=== PATIENT | female | born 1955 | race Caucasian/White ===

== ENCOUNTER → 2018-10-31 | Day surgery (SDC) | payer MEDICARE, OTHER ==
[2018-10-29 15:31] LABS: BASOPHILS # (AUTO) 0.1 (0.0-0.1); BASOPHILS % 0.7 % (0.0-1.0); EOSINOPHILS # (AUTO) 0.1 (0.0-0.4); EOSINOPHILS % 1.3 % (0.0-6.0); HEMATOCRIT 45.3 % (34.2-44.1); HEMOGLOBIN 15.8 g/dL (12.0-16.0); LYMPHOCYTES # (AUTO) 2.8 (1.0-3.2); LYMPHOCYTES % 32.7 % (18.0-39.1); MEAN CORPUSCULAR HEMOGLOBIN 34.3 pg (28-32); MEAN CORPUSCULAR HGB CONC 34.9 g/dL (31-35); MEAN CORPUSCULAR VOLUME 98.3 fL (81-99); MONOCYTES # (AUTO) 0.7 (0.2-0.8); MONOCYTES % 7.5 % (4.4-11.3); NEUTROPHILS % 57.6 % (38.7-80.0); PLATELET COUNT 192 x10e3/uL (140-360); RED BLOOD COUNT 4.61 x10e6/uL (3.6-5.1); RED CELL DISTRIBUTION WIDTH 14.5 % (11.7-14.4)
[2018-10-29 15:53] LABS: ALANINE AMINOTRANSFERASE 16 IU/L (0-55); ALBUMIN 3.8 g/dL (3.5-5.0); ALBUMIN/GLOBULIN RATIO 0.9 (0.8-2.0); ALKALINE PHOSPHATASE 59 IU/L (40-150); ANION GAP 16.4 mmol/L (8-16); BLOOD UREA NITROGEN 13 mg/dL (7-26); BUN/CREATININE RATIO 19 (6-25); CALCIUM 9.6 mg/dL (8.4-10.2); CARBON DIOXIDE 20 mmol/L (22-29); CHLORIDE 100 mmol/L (98-107); CREATININE, SERUM 0.69 mg/dL (0.57-1.11); EST GLOMERULAR FILTRATION RATE > 60 ML/MIN (60-); GLUCOSE 81 mg/dL (74-118); POTASSIUM 3.4 mmol/L (3.5-5.1); SODIUM 133 mmol/L (136-145)
[~2018-10-31] VITALS: Ht 157.5 cm; Wt 59.0 kg
[~2018-10-31] MED LIST: AMLODIPINE BESY10 MG PO; ASPIRIN 325 MG TAB ONE; BIVALRIUDIN 250 MG/VIAL VIAL IV ONE; DIPHENHYDRAMINE HCL INJ 50 MG/ML VIAL ONE; FENTANYL CITRATE/PF 100MCG/2 ML INJ ONE; HEPARIN SOD (PORCINE) 1000 UNIT/ML 30ML ONE; HEPARIN SOD/SOD CHLORIDE 2,000 ML ONE; HYDROCHLOROTHIA25 MG; HYDROCHLOROTHIA25 MG PO; IBUPROFEN400 MG PO; IOPAMIDOL 300MG/ML 100 ML INFUS..BTL IV ONE; LIDOCAINE HCL 2% LOCAL 20 ML VIAL ONE; LISINOPRIL10 MG PO; METOPROLOL TART50 MG PO; MIDAZOLAM HCL 2 MG/2 ML VIAL ONE; NORCO 10-325 T1 EACH PO; PRASUGREL 10 MG TAB ONE; SODIUM CHLORIDE 0.9% 1000ML 1,000 ML ONE; SODIUM CHLORIDE 0.9% 50ML 0 ML ONE; SOMA350 MG PO; VERAPAMIL HCL 2.5 MG/ML 2 ML VIAL ONE
[2018-10-31 13:48] VITALS: BP 118/78
[2018-10-31 16:22] VITALS: BP 176/71
--- NOTE | 2018-10-31 16:22 | NUR ---
4388 Bedside report received from Jt OCHOA. Alert oriented and inappropriate and agitative periodically, PERRLA, respirations even and unlabored to room air. Pulses x2 upper extremity. Pedal pulses PT/DP palpable . Cap fill brisk < 3 sec. Skin warm and dry integrity appears D/I. IV 20g to left hand,Infusing at 100cchr, presents healthy w/o s/s of infiltration or complaint. Abdomen soft and supple. pt offered toileting, denies need to urinate or defecate. No personal affects with patient. no Family. Pt and family verbalizes agitation of having to stay flat and down till 6pm. Pt voices no release of information and ride Gonzalo Hardwick will pickup with no information release. Reached out per phone call to [phone] by Jt OCHOA sedation nurse and will arrive at 6pm. Currently w/o complaint of pain or need. Rt Mynx closure site w/o s/s hematoma no gross issues pain, pallor pressure or dysrhythmia. Attempted instruction of home care to pt since refused info to ride. Pt refused to completely fill out discharge papers due to apparent agitative state. MD and supervision staff aware. ezequiel/rn
[2018-10-31 16:30] VITALS: BP 178/88
[2018-10-31 17:00] VITALS: BP 170/64
[2018-10-31 17:30] VITALS: BP 164/82
--- NOTE | 2018-10-31 17:45 | NUR ---
1744 pt becoming increasingly eager for rapid discharge. 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 Pb arrived in [facility] pt refused w/c escort to front [facility]. No gross issues of pain,pallor,pressure or dysrhythmia. Rt Mynx closure site intact w/o noted hematoma or oozing.Pt was given copies of papers and home prescriptions and meds. She was explained meds and importance of f/o care with Dr Yoder 2wks.Then, patient was escorted to [facility] ambulatory. Iv was removed and no s/s infiltration Coban dressing in place. Pt back to apparent baseline orientation .Copies of dc paper in belonging bag. ezequiel/chucky
--- NOTE | 2018-11-04 15:20 | Operative Report ---
DATE OF PROCEDURE: 10/31/2018 SURGEON: Juan Jose Yoder MD INDICATIONS: Peripheral arterial disease, claudication of the left lower extremity. PROCEDURES PERFORMED: 1. Abdominal aortogram. 2. Selective catheter placement of the right femoral artery to the left superficial femoral artery. 3. Additional third-order catheter placement of the right femoral artery to the left anterior tibial artery. 4. Atherectomy, angioplasty of the left femoral artery. 5. Secondary thrombectomy of the left femoral artery. 6. Stent placement to the left femoral artery. 7. Atherectomy and angioplasty of the left anterior tibial artery. 8. Atherectomy and angioplasty of left peroneal artery. 9. Deployment of right groin Mynx closure device. COMPLICATIONS: None. RECOMMENDATIONS: Staged left posterior tibial intervention via left renal artery. DESCRIPTION OF PROCEDURE: Access obtained in the right femoral artery. Abdominal aortogram demonstrated mild disease in the abdominal aorta and iliacs bilaterally. The femoral artery appeared to be occluded and was not well visualized. The catheter then advanced in the right femoral artery, left superficial femoral artery with complete occlusion. The left femoral artery was noted, right femoral artery diffuse 50% stenosis. Infrapopliteal vessels were not well visualized. The catheter was then advanced in the right femoral artery, right anterior tibial artery with diffuse 90% stenosis. The left anterior tibial artery 90% stenosis of the tibioperoneal trunk as well as complete occlusion of the left posterior tibial artery was noted. A decision was made to intervene on the left anterior tibial, peroneal and femoral artery. The patient received heparin for anticoagulation. The sheath was exchanged to a 6-Tajik 45 cm sheath. The lesions were crossed using a Glidewire. Orbital atherectomy of the left posterior tibial artery as well as peroneal arteries were performed, postdilatation with 4 mm and 3 mm balloon respectively. Orbital atherectomy of the left femoral artery was then performed with large amounts of visible thrombus for which manual aspiration thrombectomy was needed. A single stent 6 x 80 mm deployed, post dilated with a 6 mm drug-coated balloon with excellent end result, two vessel runoff to the left foot. Right groin repaired using Mynx closure device. The patient was discharged home same day. MD WILLIE Berkowitz/MODL /[id number]
== END | disposition home or self-care (01) ==
LOC: CATH LAB 13:15
PROVIDERS: ATTEND Internal Medicine Interventional Cardiology
DX: I70.212 Atherosclerosis of native arteries of extremities with intermittent claudication, left leg (principal); Z01.812 Encounter for preprocedural laboratory examination; I10 Essential (primary) hypertension; F17.210 Nicotine dependence, cigarettes, uncomplicated
CPT/HCPCS: 36415; 37186; 37227; 37229; 37232; 37252; 75625; 75716; 80053; 85025; C1724; C1725 ×2; C1753; C1760; C1769 ×2; C1876; C1887 ×2; J1200; J1644; J2001; J2250; J3010; J7030; Q9967; 36247; J0583

== ENCOUNTER → 2019-01-06 | Day surgery (SDC) | payer MEDICARE ==
[2019-01-05 16:44] LABS: BASOPHILS # (AUTO) 0.1 (0.0-0.1); BASOPHILS % 0.5 % (0.0-1.0); EOSINOPHILS # (AUTO) 0.1 (0.0-0.4); EOSINOPHILS % 1.1 % (0.0-6.0); HEMATOCRIT 43.6 % (34.2-44.1); HEMOGLOBIN 14.9 g/dL (12.0-16.0); LYMPHOCYTES # (AUTO) 2.4 (1.0-3.2); LYMPHOCYTES % 25.4 % (18.0-39.1); MEAN CORPUSCULAR HEMOGLOBIN 34.1 pg (28-32); MEAN CORPUSCULAR HGB CONC 34.2 g/dL (31-35); MEAN CORPUSCULAR VOLUME 99.8 fL (81-99); MONOCYTES # (AUTO) 0.5 (0.2-0.8); MONOCYTES % 5.3 % (4.4-11.3); NEUTROPHILS # (AUTO) 6.4 (2.1-6.9); NEUTROPHILS % 67.4 % (38.7-80.0); PLATELET COUNT 243 x10e3/uL (140-360); RED BLOOD COUNT 4.37 x10e6/uL (3.6-5.1); RED CELL DISTRIBUTION WIDTH 13.5 % (11.7-14.4)
[2019-01-05 17:09] LABS: ALANINE AMINOTRANSFERASE 22 IU/L (0-55); ALBUMIN 3.8 g/dL (3.5-5.0); ALBUMIN/GLOBULIN RATIO 0.8 (0.8-2.0); ALKALINE PHOSPHATASE 85 IU/L (40-150); ANION GAP 12.6 mmol/L (8-16); BLOOD UREA NITROGEN 11 mg/dL (7-26); BUN/CREATININE RATIO 17 (6-25); CALCIUM 9.5 mg/dL (8.4-10.2); CARBON DIOXIDE 27 mmol/L (22-29); CHLORIDE 101 mmol/L (98-107); CREATININE, SERUM 0.64 mg/dL (0.57-1.11); EST GLOMERULAR FILTRATION RATE > 60 ML/MIN (60-); GLUCOSE 91 mg/dL (74-118); POTASSIUM 3.6 mmol/L (3.5-5.1); SODIUM 137 mmol/L (136-145)
[~2019-01-06] VITALS: Ht 157.5 cm; Wt 59.4 kg
[2019-01-06] VITALS (9 sets, daily range): BP systolic 93–141; BP diastolic 60–87
[~2019-01-06] MED LIST changes: +ALPRAZOLAM 0.5 MG TAB ONE; +ASPIR 8181 MG PO; -ASPIRIN 325 MG TAB ONE; +ATORVASTATIN CA20 MG PO; -BIVALRIUDIN 250 MG/VIAL VIAL IV ONE; +CLOPIDOGREL75 MG PO; +DIPHENHYDRAMINE HCL 25 MG CAP ONE; -DIPHENHYDRAMINE HCL INJ 50 MG/ML VIAL ONE; -HEPARIN SOD (PORCINE) 1000 UNIT/ML 30ML ONE; -PRASUGREL 10 MG TAB ONE; -SODIUM CHLORIDE 0.9% 50ML 0 ML ONE
--- OUTSIDE RECORDS SUMMARY | 2019-01-06 10:23 | XMS REPORT ---
Author Author [facility] Address Unknown Phone Unavailable Care Team Providers Care Senior Research Project Manager Name Role Phone Unavailable Unavailable Problems This patient has no known problems. Allergies, Adverse Reactions, Alerts This patient has no known allergies or adverse reactions. Medications This patient has no known medications. Encounters Start Date/Time End Date/Time Encounter Type Admission Type Attending [facility] Care Department Encounter ID 2017-03-29 00:00:00 2017-03-29 00:00:00 Outpatient [facility] [id number] 2017-03-18 00:00:00 2017-03-18 00:00:00 Outpatient [facility] [id number] 2017-02-05 00:00:00 2017-02-05 00:00:00 Outpatient [facility] [id number] 2016-12-25 00:00:00 2016-12-25 00:00:00 Outpatient [facility] [id number] 2016-11-26 00:00:00 2016-11-26 00:00:00 Outpatient [facility] [id number] 2016-11-09 00:00:00 2016-11-09 00:00:00 Outpatient [facility] [id number] 2016-07-11 21:25:29 2016-07-11 21:25:29 Emergency [facility] [id number] 2016-07-11 19:53:30 2016-07-11 19:53:30 Emergency [facility] [id number]
--- NOTE | 2019-01-06 10:50 | NUR ---
1050 Bedside report received from Jt OCHOA. Alert oriented and appropriate, PERRLA, respirations even and unlabored to room air. Pulses x4 extremities equal and strong. Pedal pulses PT/DP X4 and marked. Cap fill brisk < 3 sec. Skin warm and dry integrity appears D/I IV 20g to left hand, presents healthy w/o s/s of infiltration or complaint. Abdomen soft and supple. pt offered toileting, denies need to urinate or defecate. No personal affects with patient. Family XXXXX. Pt and family verbalizes understanding of POC. Currently w/o complaint of pain or need. Ok to decrease TR band at 1230 and dc home after that.ds/chucky
--- NOTE | 2019-01-06 12:30 | NUR ---
1230 Addendum: 01/06/19 at 2041 by Marlen Golden RN Pedal left Compression removal: Initial Cuff volume 14 cc 1230 -2cc Removed No hematoma/bleeding noted with normal neurovascular function. 1245 -5 cc Removed No hematoma/ bleeding noted with normal neurovascular function. 1300 -5cc Removed No hematoma/bleeding noted with normal neurovascular function. cc Removed No hematoma/ bleeding noted with normal neurovascular function. Air removal completed. Stasis achieved sterile 2x2,Tegaderm, Coban dressing No hematoma, bleeding noted with normal neurovascular function. Wrist splint in place. Pt instructed on POC. Ds/Rn
--- NOTE | 2019-01-06 13:09 | Operative Report ---
DATE OF PROCEDURE: 01/06/2019 SURGEON: Juan Jose Yoder MD INDICATIONS: Peripheral arterial disease staged intervention on the left posterior tibial artery. COMPLICATIONS: None. PROCEDURES PERFORMED: 1. Ultrasound-guided access in the left posterior tibial artery with unilateral extremity angiogram and third-order catheter placement from the left pedal artery to the left superficial femoral artery. 2. Atherectomy and angioplasty of left posterior tibial artery. 3. Secondary thrombectomy of left posterior tibial artery. 4. Deployment left ankle TR band. RECOMMENDATIONS: Dual antiplatelet therapy. DESCRIPTION OF PROCEDURE: Ultrasound-guided access obtained in the left posterior tibial artery. A 6-Greenlandic sheath was placed. Intravenous heparin was administered for anticoagulation. The lesion was crossed using a ViperWire. Orbital atherectomy using a Diamondback CSI device was performed. Large amounts of visible thrombus for which manual aspiration thrombectomy were needed. A 2.5 mm balloon was used for angioplasty. Excellent end result. Three-vessel runoff to the left foot. No complications. Right ankle TR band applied. Sheath removed. The patient discharged home the same day. Juan Jose Yoder MD [facility]/MODL /[id number]
--- NOTE | 2019-01-06 13:15 | NUR ---
1315t meets DC criteria. left pedal TR band site assessed for s/s of complication and presence of hematoma. XXXXX warm, dry, no discolor, and pulses present. IV removed from left hand. Distal tip appears intact. VS WNL. Pt denies pain, sob, or need at this time. No Family,[employer] flatbed truck driver friend arrived. Review of discharge paperwork and follow up instructions. verbalized understanding. Pt to wheelchair and transported to front of hospital. Transferred to private vehicle under own strength w/o incident with DC paperwork in hand. - ds/rn
== END | disposition home or self-care (01) ==
LOC: CATH LAB 09:17
PROVIDERS: ATTEND Internal Medicine Interventional Cardiology
DX: I70.249 Atherosclerosis of native arteries of left leg with ulceration of unspecified site (principal); F17.200 Nicotine dependence, unspecified, uncomplicated; Z01.812 Encounter for preprocedural laboratory examination
CPT/HCPCS: 36415; 37186; 37229; 75710; 76937; 80053; 85025; C1724; C1769; J2001; J2250; J3010; J7030; Q9967; 36247; 99152; 99153